=== PATIENT | male | born 1995 | race Caucasian/White ===

== ENCOUNTER 2016-05-22 15:14 | Inpatient (IN) | payer OTHER ==
[2016-05-22] MEDS ORDERED: Dexamethasone IV* 4 MG/ML 5 ML VIAL (20 MG) IVPB ONE ×2 (16:30→16:35)
[2016-05-22] MEDS ORDERED: Ketorolac INJ* 30 MG/ML 1 ML VIAL IV PUSH ONE (16:36)
--- NOTE | 2016-05-22 16:46 | ED ---
Throat Pain/Nasal Congestion - HPI Summary HPI Summary: Overall healthy college student here w/ significant throat pain and swelling. Started as rhinorrhea, nasal congestion 1 week ago. he developed a ST and otalgia so went to [facility] Sunday. Had a rapid strep test which was negative and positive mono test. He has been taking ibuprofen and prednisone 60mg w/ relief of pain and swelling. Lt > Rt. Last ate at 1300 yesterday and last drank water at 10am this morning. Has associated diarrhea. Denies fever, chill, n/v, ab pain. Imms are UTD and although he lives with roommates, no known sick contacts. - History of Current Complaint Chief Complaint: EDGeneral Time Seen by Provider: 05/22/16 16:15 Hx Obtained From: Patient - Allergies/Home Medications Allergies/Adverse Reactions: Allergies Allergy/AdvReac Type Severity Reaction Status Date / Time No Known Drug Allergy Allergy Unknown Verified 05/22/16 16:55 Reaction Details Home Medications: Home Medications NK [No Home Medications Reported] 05/22/16 [History Confirmed 05/22/16] PMH/Surg Hx/FS Hx/Imm Hx Previously Healthy: Yes Endocrine/Hematology History: Denies: Autoimmune Disease Respiratory History: Denies: Hx Asthma Infectious Disease History: No Infectious Disease History: Denies: Traveled Outside the [place] in Last 30 Days - Family History Known Family History: Positive: None - Social History Occupation: Student Lives: With Family - roommates Alcohol Use: Weekly Substance Use Type: Reports: Marijuana - weekly Smoking Status (MU): Current Every Day Smoker - 1 pack per week Review of Systems Negative: Fever, Chills Positive: Sore Throat - see HPI, Nasal Discharge Negative: Chest Pain Negative: Shortness Of Breath, Cough Positive: Diarrhea. Negative: Abdominal Pain, Vomiting, Nausea Positive: no symptoms reported Negative: Rash Neurological: Negative Psychological: Normal - concerned All Other Systems Reviewed And Are Negative: Yes Physical Exam Triage Information Reviewed: Yes Vital Signs On Initial Exam: Initial Vitals Temp Pulse Resp BP Pulse Ox 98.3 F 92 20 134/73 100 05/22/16 15:17 05/22/16 15:17 05/22/16 15:17 05/22/16 15:17 05/22/16 15:17 Vital Signs Reviewed: Yes Appearance: Positive: Well-Nourished, Ill-Appearing - appears fatigued and trying hold steady head position, Pain Distress - with swallowing saliva Skin: Positive: Warm, Dry - macular erythematous rash about neck and chest Head/Face: Positive: Normal Head/Face Inspection - sinuses NTTP Eyes: Positive: Normal, EOMI, Conjunctiva Clear. Negative: Conjunctiva Inflammed, Discharge ENT: Positive: Hearing grossly normal, Nasal congestion, Nasal drainage, TMs normal, Tonsillar swelling - +3-4, Tonsillar exudate Neck: Positive: Tenderness @ - Lt > Rt, Enlarged Nodes @ Respiratory/Lung Sounds: Positive: Clear to Auscultation - has muffled voice however, Breath Sounds Present. Negative: Rales, Rhonchi, Stridor - has muffled voice, Wheezes Cardiovascular: Positive: Normal, RRR, S1, S2. Negative: Murmur, Rub Abdomen Description: Positive: Nontender, No Organomegaly, Soft. Negative: Splenomegaly Musculoskeletal: Positive: Normal, Strength/ROM Intact Neurological: Positive: Normal, Sensory/Motor Intact, Alert, Oriented to Person Place, Time, CN Intact II-III Psychiatric: Positive: Normal Diagnostics - Vital Signs Vital Signs Temp Pulse Resp BP Pulse Ox 05/22/16 15:17 98.3 F 92 20 134/73 100 - Laboratory Result Diagrams: 05/22/16 17:00 05/22/16 17:00 Lab Statement: Any lab studies that have been ordered have been reviewed, and results considered in the medical decision making process. EENT Course/Dx - Course Course Of Treatment: Pt w/ worsening of throat pain and swelling s/p mono dx. Has tried ibuprofen and prednisone PO 60mg w/o relief. No ab pain nor pain w/ palpation, no fever, no vomiting. Spoke w/ Dr. Davalos who recommends decadron 16mg IV and hospital admission for observation. Spoke w/ Dr. Chun to admit. - Diagnoses Provider Diagnoses: Mononucleosis, Acute tonsillitis Discharge - Discharge Plan Condition: Stable Disposition: ADMITTED TO [facility]
[2016-05-22] MEDS: NS 0.9% 1000 ML* 2,000 ML IV ONE ×2 (17:02→17:30)
[2016-05-22 17:37] LABS: Add Diff/Slide Review? Slide Review Added; Comments Flag Yes; Hematocrit 45 % (42-52); Mean Corpuscular HGB Conc 34 g/dl (31-36); Mean Corpuscular Hemoglobin 32 pg (27-31); Mean Corpuscular Volume 94 fL (80-94); Mean Platelet Volume 8 um3 (7.4-10.4); Red Blood Count 4.76 10^6/ul (4.0-5.4); Red Cell Distribution Width 13 % (10.5-15); White Blood Count 14.1 10^3/ul (3.5-10.8)
[2016-05-22 18:03] LABS: Albumin 4.2 g/dL (3.2-5.2); BUN/Creatinine Ratio 11.4 (8-20); Calcium 9.5 mg/dL (8.6-10.3); EGFR African American 159.2 (>60); EGFR Non-African American 123.8 (>60); Globulin 3.9 g/dL (2-4); Potassium 3.6 mmol/L (3.5-5.0); Total Bilirubin 0.7 mg/dL (0.2-1.0); Total Protein 8.1 g/dL (6.4-8.9)
[2016-05-22] MEDS: Acetaminophen TAB* 325 MG PO PRN (18:20)
[2016-05-22] MEDS: Dexamethasone IV* 4 MG/ML 5 ML VIAL (20 MG) IVPB SCH (21:26)
--- NOTE | 2016-05-23 01:40 | HP ---
HOSPITAL MEDICINE HISTORY AND PHYSICAL: DATE OF ADMISSION: 05/22/16 PRIMARY CARE PROVIDER: [facility]. ATTENDING PHYSICIAN: Shreya Le MD *(dictation provided by Mara Camp NP) . CHIEF COMPLAINT: Sore throat. HISTORY OF PRESENT ILLNESS: Mr. Acuña is a 20-year-old male with no significant past medical history who presented to the hospital today from [facility] with concern for severe sore throat in the setting of mono. Mr. Acuña states that he first began to feel ill last Sunday. He had a sore throat, sinus congestion, pressure behind his eyes, and also pain in his left ear. He continued to feel unwell up until Sunday when he went to the [facility] and was diagnosed with mono. A strep swab at that time was negative. The patient was encouraged to continue to increase his po fluids and take ibuprofen or Tylenol for pain. The patient states the following day, he was prescribed prednisone due to the severity of pain and swelling in his throat. He returned to the [facility] today and was found to have more severe throat swelling despite prednisone use and therefore was transitioned over to [facility] for evaluation. The patient denies chest pain, shortness of breath. He has had a mild cough. He denies nausea, vomiting, diarrhea. In the emergency room, Mr. Acuña has an elevated white blood cell count of 14.1. He has a fever to 102.0. The patient's basic metabolic panel was essentially unremarkable. He is mildly tachycardic with a heart rate up to 100. He has severe swelling in his throat and is unable to tolerate oral intake , though he is breathing easily and at this point able to swallow his saliva. PAST MEDICAL HISTORY: History of surgery to her right thumb after a trauma. MEDICATIONS: 1. Prednisone 60 mg p.o. daily. 2. Mucinex p.r.n. 3. Ibuprofen p.r.n. ALLERGIES: No known drug allergies. FAMILY HISTORY: The patient states that on his dad side of the family, there is a "lot of heart disease" and on his mom's side of the family, there is "not much." SOCIAL HISTORY: The patient states that he smokes one pack of cigarettes per week. He drinks alcohol occasionally 1 to 2 times per week. He smokes marijuana approximately every 2 weeks. He states his dad would be the healthcare proxy. REVIEW OF SYSTEMS: Constitutional: Positive for fevers. No anorexia. Cardiac : No chest pain, no edema. Respiratory: Positive for cough. No hemoptysis. No shortness of breath. GI: No nausea, vomiting, diarrhea, abdominal pain. : No gross hematuria or dysuria. Neuro: No focal weakness or sensory loss. Eyes: No visual complaints. ENT: No dysphagia. Positive for sore throat and left ear pain. Musculoskeletal: Positive for arthralgia and myelalgia. Skin: No rashes or lesions. Psych: No depression or anxiety. PHYSICAL EXAMINATION GENERAL: Mr. Acuña is sitting up in the chair. He is in no acute distress. He is calm and cooperative with my examination. VITAL SIGNS: Temperature 102.0, pulse rate 103, respiratory rate 18, O2 saturation 99% on room air, blood pressure 139/67. HEENT: The patient has tonsillar swelling +3 to 4 with tonsillar exudate. There is tenderness along the left maxilla with enlarged lymph nodes. Pt is breathing easily though his voice is muffled. He is able to swallow saliva. LUNGS: Clear to auscultation bilaterally with no accessory muscle use and good aeration. HEART: S1, S2. No murmur, rub, or gallop, and regular. ABDOMEN: Soft, nontender with bowel sounds positive x4. EXTREMITIES: No cyanosis or edema. NEURO: He is alert. He is oriented x3. He moves all extremities equally. There is no facial asymmetry or focal weakness. SKIN: Intact. DIAGNOSTIC STUDIES/LAB DATA: WBC 14.1, hemoglobin 15.0, hematocrit 45, platelet count 190. Sodium 134, potassium 3.6, chloride 97, serum bicarbonate 28, BUN 9, creatinine 0.79, glucose 100. ASSESSMENT: Mr. Acuña is a 20-year-old male with no significant past medical history who presents today from [facility] with concern for Blanco with severe throat swelling and inability to tolerate oral intake despite prednisone use. Our plans are for observation in the hospital for the followin. Blanco with severe throat swelling and inability to tolerate oral intake: The patient will be treated symptomatically with intravenous fluids, dexamethasone at 0.25 mg/kg, and ibuprofen/acetaminophen. We will be monitoring him closely for any signs of stridor or respiratory distress. 2. DVT prophylaxis with early mobility. 3. Disposition to the medical floor. TIME SPENT: Approximately 60 minutes were spent on the admission of this patient, more than half the time spent with the patient at the bedside reviewing the events leading up to this hospitalization, performing the physical examination, and reviewing the plan of care. MARA CAMP NP CC: [facility]* [id number]/CPS #: [id number] MTDMarino
[2016-05-23] MEDS: Ibuprofen TAB* 600 MG PO PRN ×3 (02:12→17:54)
[2016-05-23] MEDS: Dexamethasone IV* 4 MG/ML 5 ML VIAL (20 MG) IVPB SCH ×2 (03:30→08:31)
--- NOTE | 2016-05-23 11:48 | PN ---
Subjective Date of Service: 05/23/16 Interval History: Pt examined today at the bedside. He states that his throat feels a little better today. Denies drooling. States he can swallow liquids better today. Denies shortness of breath. ROS-admits to fever overnight, denies chest pain, denies sob, denies nausea, denies vomiting, denies lightheadedness, denies loc, denies abdominal pain, review of 11 systems completed all others negative, Objective Active Medications: Acetaminophen (Tylenol Tab*) 650 mg PO Q6H PRN PRN Reason: pain/fever Last Admin: 05/22/16 18:20 Dose: 650 mg Lactated Ringer's (Lactated Ringers 1000 Ml Bag*) 1,000 mls @ 150 mls/hr IV PER RATE DEVENDRA Last Admin: 05/23/16 10:45 Dose: 150 mls/hr Clindamycin HCl/Dextrose (Cleocin 600 Mg Ivpremix(*) Sdv) 600 mg in 50 mls @ 100 mls/hr IV Q8H DEVENDRA Ibuprofen (Motrin Tab*) 600 mg PO Q8H PRN PRN Reason: PAIN Last Admin: 05/23/16 08:30 Dose: 600 mg Methylprednisolone Sodium Succinate (Solu-Medrol*) 40 mg IV Q12H [facility] Vital Signs 05/22/16 05/22/16 05/22/16 17:13 18:45 19:27 Temperature 102.0 F 99.3 F Pulse Rate 103 98 Respiratory 18 18 16 Rate Blood Pressure 139/67 135/67 (mmHg) O2 Sat by Pulse 99 97 Oximetry 05/22/16 05/23/16 05/23/16 23:45 04:02 07:47 Temperature 99.2 F 98.0 F 97.3 F Pulse Rate 86 75 89 Respiratory 16 18 20 Rate Blood Pressure 136/73 135/63 137/64 (mmHg) O2 Sat by Pulse 97 98 99 Oximetry Appearance: 20 y/o male sitting in bed, well developed well nourished, Eyes: No Scleral Icterus, PERRLA Ears/Nose/Mouth/Throat: - - tonsilar errytherma noted, three plus tonsils noted , submandibular adenopathy and tenderness noted, no drooling noted Neck: Trachea Midline Respiratory: Symmetrical Chest Expansion and Respiratory Effort, Clear to Auscultation Cardiovascular: NL Sounds; No Murmurs; No JVD Abdominal: NL Sounds; No Tenderness; No Distention Extremities: No Edema Skin: No Rash or Ulcers Neurological: Alert and Oriented x 3 Lines/Tubes/Other Access: Clean, Dry and Intact Peripheral IV Result Diagrams: 05/22/16 17:00 05/22/16 17:00 Assess/Plan/Problems-Billing Assessment: 20 y/o male presenting from [facility] with complaints of sore throat and worsening tonsilar swelling, - Patient Problems (1) Mononucleosis Current Visit: Yes Status: Acute Priority: High Comment: Spoke to ent today, they will eval patient later today, plan to decrease steriods to solumederol 40 bid, will add clinda per ent recommendations, slight improvement today, however tonsils still edematous, hold on imaging at this point, repeat cbc today along with cmp, continue ivf, (2) DVT prophylaxis Current Visit: Yes Status: Acute Priority: High Comment: low risk SCD's (3) FEN Current Visit: Yes Status: Acute Priority: High Comment: soft diet (4) Full code status Current Visit: Yes Status: Acute Priority: High Status and Disposition: Continue iv steroids at reduced dose, start iv abx, await ent evaluation, slight improvement today, home when able,
[2016-05-23] MEDS: methylPREDNISolone SOD SUCC* 40 MG/ML VIAL IV SCH (13:08)
[2016-05-23] MEDS: Clindamycin 600 MG IVPREMIX(* 600 MG/50 ML SDV IV SCH ×2 (13:08→21:36)
[2016-05-23 13:37] LABS: Hematocrit 41 % (42-52); Hemoglobin 14.1 g/dl (14.0-18.0); Mean Corpuscular HGB Conc 34 g/dl (31-36); Mean Corpuscular Hemoglobin 32 pg (27-31); Mean Corpuscular Volume 93 fL (80-94); Mean Platelet Volume 7 um3 (7.4-10.4); Red Blood Count 4.45 10^6/ul (4.0-5.4); Red Cell Distribution Width 13 % (10.5-15); White Blood Count 15.8 10^3/ul (3.5-10.8)
[2016-05-23 13:41] LABS: Add Diff/Slide Review? Slide Review Added; Comments Flag Yes
[2016-05-23 13:48] LABS: Albumin 3.5 g/dL (3.2-5.2); BUN/Creatinine Ratio 19.7 (8-20); Calcium 9.1 mg/dL (8.6-10.3); EGFR African American 214.6 (>60); EGFR Non-African American 166.9 (>60); Globulin 3.6 g/dL (2-4); Potassium 3.7 mmol/L (3.5-5.0); Total Bilirubin 0.6 mg/dL (0.2-1.0); Total Protein 7.1 g/dL (6.4-8.9)
--- NOTE | 2016-05-23 14:07 | CONS ---
CONSULTATION NOTE: DATE OF CONSULT: 05/23/16 REQUESTING CONSULTATION: Nickolas Bravo NP. HISTORY OF PRESENT ILLNESS: The patient was admitted through the emergency room for mononucleosis. He had been at the [facility] and was being treated with some oral steroids as an outpatient, got worse, and presented to the ER last night. He was started on IV dexamethasone, IV hydration, and admitted. They spoke to Dr. Ralph earlier in the day, who recommended adding some clindamycin in case he is secondarily infected. He says that otherwise he is healthy. He is feeling better than when he was admitted last night, and is not in any distress at this time. PHYSICAL EXAMINATION: He has significant tonsillar hypertrophy with some exudates and erythema, but no peritonsillar swelling, no uvular edema, no posterior pharyngeal edema, and no shortness of breath. Neck is soft without any significant lymphadenopathy. ASSESSMENT: The patient has mononucleosis with significant tonsillar hypertrophy, minimal airway compromise at this time. He was not drinking and was admitted for IV therapy and hydration. I would continue with the therapy as has been initiated. I talked to Nickolas Bravo to wean him off the IV dexamethasone, continue with the IV hydration, making sure he is taking adequate p.o. intake and since the clindamycin has been started he will continue to be discharged on that orally when he is discharged, hopefully tomorrow. [id number]/[facility] #: [id number] MTDD
[2016-05-23 14:24] LABS: Immature Granulocytes 5 % (0-9); Neutrophil % 56 % (38-83); Reactive Lymph % 18 % (0-6)
[2016-05-23 14:25] LABS: RBC Morphology Normal (Normal)
[2016-05-23 14:28] LABS: Add Path Review? YES
[2016-05-23 14:57] LABS: Manual Entry Verification GRE0060; Mono Internal Control QC Line Present
[2016-05-23] MEDS: Acetaminophen TAB* 325 MG PO PRN (15:45)
[2016-05-24] MEDS: methylPREDNISolone SOD SUCC* 40 MG/ML VIAL IV SCH (00:18)
[2016-05-24] MEDS: Ibuprofen TAB* 600 MG PO PRN (04:39)
[2016-05-24] MEDS: Clindamycin 600 MG IVPREMIX(* 600 MG/50 ML SDV IV SCH (06:00)
[2016-05-24 08:23] LABS: Hematocrit 36 % (42-52); Hemoglobin 12.5 g/dl (14.0-18.0); Mean Corpuscular HGB Conc 35 g/dl (31-36); Mean Corpuscular Hemoglobin 32 pg (27-31); Mean Corpuscular Volume 92 fL (80-94); Mean Platelet Volume 7 um3 (7.4-10.4); Red Blood Count 3.94 10^6/ul (4.0-5.4); Red Cell Distribution Width 13 % (10.5-15); White Blood Count 14.9 10^3/ul (3.5-10.8)
[2016-05-24 08:24] LABS: Add Diff/Slide Review? Manual Diff Added; Comments Flag Yes
[2016-05-24 08:36] LABS: BUN/Creatinine Ratio 18.8 (8-20); Calcium 8.7 mg/dL (8.6-10.3); EGFR Non-African American 157.9 (>60)
[2016-05-24 08:43] VITALS: BP 140/63
[2016-05-24] MEDS ORDERED: Influenza VAC *QUAD* 2016-17* 0.5 ML SYRINGE IM ONE (09:00)
[2016-05-24 09:02] LABS: Neutrophil % 58 % (38-83); RBC Morphology Normal (Normal); Reactive Lymph % 23 % (0-6)
[2016-05-24] MEDS ORDERED: Clindamycin 600 MG IVPREMIX(* 600 MG/50 ML SDV IV SCH (14:00)
--- NOTE | 2016-05-24 22:27 | DS ---
DISCHARGE SUMMARY: DATE OF ADMISSION: 05/22/16 DATE OF DISCHARGE: 05/24/16 PRIMARY CARE PROVIDER: From [facility] from [facility]. DISCHARGE DIAGNOSES: 1. Acute bacterial pharyngitis. 2. Mononucleosis. MEDICATIONS AT DISCHARGE: 1. Clindamycin 300 mg p.o. 4 times a day for 8 days total. 2. Prednisone taper. The patient is to use 60 mg daily for 2 days, then 40 mg daily for 2 days, then 20 mg daily for 2 days, then 10 mg daily for 2 days, then stop. FOLLOWUP: The patient is recommended to follow up with [facility] in 4 to 7 days. The patient is also recommended to follow up with Dr. Davalos, the ENT physician, if needed. CONSULTATIONS DURING THE HOSPITAL STAY: Included Dr. Davalos, the ENT specialist. LABORATORY DATA AND STUDIES PERFORMED DURING THE HOSPITAL STAY: Included, on , white blood cell count of 14.9, hemoglobin 12.5, hematocrit of 36, and platelets of 199. Sodium was 135, potassium 4.0, chloride 102, carbon dioxide 28, BUN 12, creatinine 0.64. [place] screen was positive. HOSPITALIZATION COURSE: Hebert Acuña is a 20-year-old [employer] [facility] [employer] student, who presented complaining of inability to eat due to painful throat. The patient was already placed on steroids as outpatient. The patient was initially placed on observation, but he continued to have problems with swallowing and he was eventually placed an inpatient since he required [address] Davalos saw the patient as a specialist consult. Recommended continuation of steroids as well addition of clindamycin for most likely bacterial pharyngitis. The patient did well after the clindamycin was started, and he was able to tolerate soft diet. He is able to go home with followup as recommended. PHYSICAL EXAMINATION AT THE TIME OF DISCHARGE: Blood pressure 140/63, heart rate of 60 and regular, respiratory rate 18, oxygen saturation 98% on room air, temperature 97.6. General: The patient is a very pleasant 20-year-old male, in no acute distress. Alert, awake, and oriented x3. HEENT: Head: Atraumatic , normocephalic. Eyes: Extraocular muscles are intact. Pupils equal and reactive to light and accommodation. Oropharynx with bilateral tonsillar enlargement with tonsillar exudates bilaterally that are greenish in color. The airway is patent and the tonsillar enlargement is improved from yesterday. On evaluation of the neck, the patient has shotty anterior cervical lymphadenopathy present, tender to palpation. Cardiovascular: Regular rate and rhythm. No murmurs. Respiratory: Clear to auscultation bilaterally. Abdomen: Soft and nontender. Bowel sounds present in all 4 quadrants. Extremities: There is no edema. Pulses are 2+ bilaterally. No clubbing or cyanosis. On evaluation of the skin, no rashes or ecchymotic areas noted. Neuro Evaluation: Nonfocal. Cranial nerves II through XII grossly intact. Motor strength is 5/5 bilaterally. At discharge, the patient was recommended to continue activity as tolerated, but not actively participate in sports for one month. Please note this is a short summary of the patient's hospital stay. Please refer to further medical records for details. TIME SPENT: Approximately 35 minutes was spent on the patient's discharge. CC: Dr. Davalos; [facility]* [id number]/CPS #: [id number] MTDMarino
== END 2016-05-24 10:59 | disposition home or self-care (01) | DRG 723 ==
LOC: ED 15:14 → MED 16:41 → OBSVTOIN 05-23 12:30
PROVIDERS: ADMIT Internal Medicine; ATTEND Internal Medicine
DX: B27.90 Infectious mononucleosis, unspecified without complication (principal); B96.89 Other specified bacterial agents as the cause of diseases classified elsewhere; J02.8 Acute pharyngitis due to other specified organisms; F17.210 Nicotine dependence, cigarettes, uncomplicated; Z82.49 Family history of ischemic heart disease and other diseases of the circulatory system
CPT/HCPCS: 36415; 80048; 80053; 85025; 85060; 86308; 90686; A9270-GY; G0378; J1885; J2920